=== PATIENT | male | born 1960 | race Hispanic/Latino ===

== ENCOUNTER 2018-02-10 05:43 | Day surgery (SDC) | payer OTHER ==
[2018-02-08 09:25] LABS: BASOPHILS % (AUTO) 0.6 % (0.0-5.0); EOSINOPHILS % (AUTO) 3.3 % (0.0-8.0); HEMATOCRIT 40.3 % (42-54); LYMPHOCYTES % (AUTO) 27.9 % (21.0-51.0); MEAN CORPUSCULAR HEMOGLOBIN 32.4 pg (27.0-33.0); MEAN CORPUSCULAR HGB CONC 36.4 g/dL (32.0-36.0); MEAN CORPUSCULAR VOLUME 89.1 fL (79-99); NEUTROPHILS % (AUTO) 58.2 % (40.0-77.0); PLATELET COUNT (AUTO) 193 K/uL (130-400); RED BLOOD CELL COUNT(AUTO) 4.53 MIL/uL (4.50-6.20); RED CELL DISTRIBUTION WIDTH 12.6 % (11.0-15.5); WHITE BLOOD COUNT (AUTO) 7.2 K/uL (4.8-10.8)
[2018-02-08 09:31] VITALS: BP 108/64
[2018-02-08 09:38] LABS: POTASSIUM 4.2 mmol/L (3.5-5.1)
[~2018-02-10] VITALS: Ht 181.6 cm; Wt 81.5 kg
[~2018-02-10 05:43] MED LIST: AMLO5TAB2 PO; ATOR40TA69 PO; BETH25TA PO; CEFAZOLIN SODIUM 1 GM VIAL IVP SCH; DABI150C PO; DEXT1DRO8 OP; DOCU100C33 PO; FLUT16H NASAL; GABA-531 PO; GLIP10TA9 PO; HYDR25TA PO; INSU100I15 SQ; LOSA100T29 PO; MEGESTROL AC PO; MELA1TAB28 PO; MEMA10TA20 PO; METF10004 PO; METO50TA18 PO; MOME17SP10 NS; OMEP20CA10 PO; OXYC-586 PO; SULF1TAB3 PO
[2018-02-10 06:15] VITALS: BP 108/65
[2018-02-10 06:45] LABS: INR 0.9 (0.85-1.15); PARTIAL THROMBOPLASTIN TIME 25.3 SEC (26.3-35.5); PROTHROMBIN TIME 9.5 SEC (9.6-11.6)
[2018-02-10] MEDS ORDERED: SODIUM CHLORIDE 0.9% 1000ML 1,000 ML IV ONE (06:50)
[2018-02-10] MEDS ORDERED: INSU3INS3 SQ (07:10)
[2018-02-10] MEDS ORDERED: CEFAZOLIN SODIUM 1 GM VIAL ONE (07:21)
[2018-02-10] MEDS ORDERED: BUPIVACAINE/PF 0.25% 30ML VIAL IJ ONE (07:21)
[2018-02-10] MEDS ORDERED: LIDOCAINE HCL 2% 20ML ONE ×2 (07:21)
[2018-02-10] MEDS ORDERED: MEPERIDINE-PF 25 MG/ML SYG ONE (07:25)
[2018-02-10] MEDS ORDERED: MIDAZOLAM HCL 1 MG/ML 2ML VIAL ONE (07:25)
[2018-02-10] MEDS ORDERED: FENTANYL CITRATE PF 50 MCG/1 ML 2ML VIAL ONE (08:22)
[2018-02-10] MEDS ORDERED: DiphenhydrAMINE HCL 50 MG/ML VIAL ONE (08:40)
[2018-02-10] MEDS ORDERED: ACETAMINOPHEN 325 MG TAB PO PRN (09:00)
[2018-02-10 09:05] VITALS: BP 112/73
[2018-02-10 09:20] VITALS: BP 131/71
[2018-02-10 10:05] VITALS: BP 119/68
== END 2018-02-10 10:18 | disposition home or self-care (01) ==
LOC: DAH 05:43
PROVIDERS: ATTEND Internal Medicine Cardiovascular Disease
DX: I48.92 Unspecified atrial flutter (principal); I48.0 Paroxysmal atrial fibrillation; Z79.01 Long term (current) use of anticoagulants; Z79.899 Other long term (current) drug therapy; Z79.4 Long term (current) use of insulin; Z86.73 Personal history of transient ischemic attack (TIA), and cerebral infarction without residual deficits
CPT/HCPCS: 33284; 36415 ×2; 80048; 82948; 85025; 85610; 85730; 93005; A4606; A4649; J0690; J1200; J2175; J2250; J3010; J3490 ×3; J7030; 99156; 99157